=== PATIENT | male | born 1970 | race Caucasian/White ===

== ENCOUNTER → 2023-04-04 08:16 | Outpatient (REF) | payer BC, SELFPAY | LOC: HWRAD 08:16 | PROVIDERS: ATTENDING PHYSICIAN Urology; FAMILY PHYSICIAN Internal Medicine | DX: R31.29 Other microscopic hematuria (principal); R16.0 Hepatomegaly, not elsewhere classified | CPT/HCPCS: 74178; Q9967 ==

== ENCOUNTER → 2023-05-07 09:18 | Outpatient (REF) | payer BC, SELFPAY | LOC: RAD 09:18 | PROVIDERS: ATTENDING PHYSICIAN Orthopaedic Surgery; FAMILY PHYSICIAN Internal Medicine | DX: M25.511 Pain in right shoulder (principal); M25.512 Pain in left shoulder | CPT/HCPCS: 76882 ==

== ENCOUNTER → 2023-05-19 15:52 | Outpatient (REF) | payer BC, SELFPAY | LOC: RAD 15:52 | PROVIDERS: ATTENDING PHYSICIAN Physician Assistant; FAMILY PHYSICIAN Internal Medicine | DX: M54.50 Low back pain, unspecified (principal) | CPT/HCPCS: 70030 ==

== ENCOUNTER 2023-10-30 09:16 | Outpatient (RCR) | payer BC, SELFPAY | END 2023-10-30 23:59 | disposition home or self-care (01) | LOC: RPT 09:16 | PROVIDERS: ATTENDING PHYSICIAN Urology; FAMILY PHYSICIAN Internal Medicine | DX: M62.89 Other specified disorders of muscle (principal); N32.3 Diverticulum of bladder; R33.9 Retention of urine, unspecified; R35.0 Frequency of micturition; N40.1 Benign prostatic hyperplasia with lower urinary tract symptoms; Z73.6 Limitation of activities due to disability | CPT/HCPCS: 97163; 97530 ==

== ENCOUNTER 2023-11-26 15:53 | Outpatient (RCR) | payer BC, SELFPAY | END 2023-11-26 23:59 | disposition home or self-care (01) | LOC: RPT 15:53 | PROVIDERS: ATTENDING PHYSICIAN Urology; FAMILY PHYSICIAN Internal Medicine | DX: N32.3 Diverticulum of bladder (principal); R33.9 Retention of urine, unspecified; R35.0 Frequency of micturition; N40.1 Benign prostatic hyperplasia with lower urinary tract symptoms; Z73.6 Limitation of activities due to disability; M62.89 Other specified disorders of muscle | CPT/HCPCS: 97112; 97140; 97530 ==

== ENCOUNTER 2023-12-31 16:03 | Outpatient (RCR) | payer BC, SELFPAY | END 2023-12-31 23:59 | disposition home or self-care (01) | LOC: RPT 16:03 | PROVIDERS: ATTENDING PHYSICIAN Urology; FAMILY PHYSICIAN Internal Medicine | DX: N32.3 Diverticulum of bladder (principal); R33.9 Retention of urine, unspecified; R35.0 Frequency of micturition; M62.89 Other specified disorders of muscle; N40.1 Benign prostatic hyperplasia with lower urinary tract symptoms; Z73.6 Limitation of activities due to disability | CPT/HCPCS: 97140; 97530 ==

== ENCOUNTER 2024-01-07 13:45 | Outpatient (RCR) | payer BC, SELFPAY | END 2024-01-12 14:10 | disposition home or self-care (01) | LOC: RPT 13:45 | PROVIDERS: ATTENDING PHYSICIAN Urology; FAMILY PHYSICIAN Internal Medicine | DX: N32.3 Diverticulum of bladder (principal); R33.9 Retention of urine, unspecified; R35.0 Frequency of micturition; M62.89 Other specified disorders of muscle; N40.1 Benign prostatic hyperplasia with lower urinary tract symptoms; Z73.6 Limitation of activities due to disability | CPT/HCPCS: 97140; 97530 ==

== ENCOUNTER 2024-03-02 09:43 | Outpatient (RCR) | payer BC, SELFPAY | END 2024-03-02 23:59 | disposition home or self-care (01) | LOC: RPT 09:43 | PROVIDERS: ATTENDING PHYSICIAN Urology; FAMILY PHYSICIAN Internal Medicine | DX: N32.3 Diverticulum of bladder (principal); R33.9 Retention of urine, unspecified; R35.0 Frequency of micturition; N40.1 Benign prostatic hyperplasia with lower urinary tract symptoms; Z73.6 Limitation of activities due to disability; M62.89 Other specified disorders of muscle | CPT/HCPCS: 97140; 97163; 97530 ==

== ENCOUNTER 2024-03-31 13:46 | Outpatient (RCR) | payer BC, SELFPAY | END 2024-03-31 23:59 | disposition home or self-care (01) | LOC: RPT 13:46 | PROVIDERS: ATTENDING PHYSICIAN Urology; FAMILY PHYSICIAN Internal Medicine | DX: N32.3 Diverticulum of bladder (principal); R33.9 Retention of urine, unspecified; R35.0 Frequency of micturition; N40.1 Benign prostatic hyperplasia with lower urinary tract symptoms; Z73.6 Limitation of activities due to disability; M62.89 Other specified disorders of muscle | CPT/HCPCS: 97140; 97530 ==

== ENCOUNTER 2024-04-14 14:01 | Outpatient (RCR) | payer BC, SELFPAY | END 2024-04-14 23:59 | disposition home or self-care (01) | LOC: RPT 14:01 | PROVIDERS: ATTENDING PHYSICIAN Urology; FAMILY PHYSICIAN Internal Medicine | DX: N32.3 Diverticulum of bladder (principal); R33.9 Retention of urine, unspecified; R35.0 Frequency of micturition; N40.1 Benign prostatic hyperplasia with lower urinary tract symptoms; Z73.6 Limitation of activities due to disability; M62.89 Other specified disorders of muscle | CPT/HCPCS: 97110; 97112; 97140; 97530 ==

== ENCOUNTER 2024-04-28 13:55 | Outpatient (RCR) | payer BC, SELFPAY | END 2024-04-28 23:59 | disposition home or self-care (01) | LOC: RPT 13:55 | PROVIDERS: ATTENDING PHYSICIAN Physician Assistant; FAMILY PHYSICIAN Internal Medicine | DX: M48.062 Spinal stenosis, lumbar region with neurogenic claudication (principal); M54.16 Radiculopathy, lumbar region; Z73.6 Limitation of activities due to disability | CPT/HCPCS: 97110; 97112; 97162 ==

== ENCOUNTER 2024-05-05 10:29 | Outpatient (RCR) | payer BC, SELFPAY | END 2024-05-05 23:59 | disposition home or self-care (01) | LOC: RPT 10:29 | PROVIDERS: ATTENDING PHYSICIAN Physician Assistant; FAMILY PHYSICIAN Internal Medicine | DX: M48.062 Spinal stenosis, lumbar region with neurogenic claudication (principal); M54.16 Radiculopathy, lumbar region; Z73.6 Limitation of activities due to disability | CPT/HCPCS: 97110; 97140 ==

== ENCOUNTER 2024-05-26 16:48 | Outpatient (RCR) | payer BC, SELFPAY | END 2024-05-26 23:59 | disposition home or self-care (01) | LOC: RPT 16:48 | PROVIDERS: ATTENDING PHYSICIAN Urology; FAMILY PHYSICIAN Internal Medicine | DX: N32.3 Diverticulum of bladder (principal); R33.9 Retention of urine, unspecified; R35.0 Frequency of micturition; N40.1 Benign prostatic hyperplasia with lower urinary tract symptoms; Z73.6 Limitation of activities due to disability; M62.89 Other specified disorders of muscle | CPT/HCPCS: 97110; 97140; 97530 ==

== ENCOUNTER 2024-06-23 18:52 | Outpatient (RCR) | payer BC, SELFPAY | END 2024-06-23 23:59 | disposition home or self-care (01) | LOC: RPT 18:52 | PROVIDERS: ATTENDING PHYSICIAN Physician Assistant; FAMILY PHYSICIAN Internal Medicine | DX: M48.062 Spinal stenosis, lumbar region with neurogenic claudication (principal); M54.16 Radiculopathy, lumbar region; Z73.6 Limitation of activities due to disability | CPT/HCPCS: 97110; 97112; 97140 ==

== ENCOUNTER 2024-07-07 18:51 | Outpatient (RCR) | payer BC, SELFPAY | END 2024-07-22 05:30 | disposition home or self-care (01) | LOC: RPT 18:51 | PROVIDERS: ATTENDING PHYSICIAN Physician Assistant; FAMILY PHYSICIAN Internal Medicine | DX: M48.062 Spinal stenosis, lumbar region with neurogenic claudication (principal); M54.16 Radiculopathy, lumbar region; Z73.6 Limitation of activities due to disability | CPT/HCPCS: 97010; 97110 ==

== ENCOUNTER 2024-08-04 18:00 | Outpatient (RCR) | payer BC, SELFPAY | END 2024-08-05 11:41 | disposition home or self-care (01) | LOC: RPT 18:00 | PROVIDERS: ATTENDING PHYSICIAN Urology; FAMILY PHYSICIAN Internal Medicine | DX: N32.3 Diverticulum of bladder (principal); R33.9 Retention of urine, unspecified; R35.0 Frequency of micturition; N40.1 Benign prostatic hyperplasia with lower urinary tract symptoms; Z73.6 Limitation of activities due to disability; M62.89 Other specified disorders of muscle | CPT/HCPCS: 97140; 97530 ==